=== PATIENT | male | born 1980 | race Caucasian/White ===

== ENCOUNTER 2021-10-31 07:43 | Outpatient (REF) | payer BC, SELFPAY ==
[2021-10-31 10:53] LABS: MANUAL DIFF FLAG NO
[2021-10-31 11:02] LABS: Basophils Absolute Auto 0.1 X10*3/uL (0.0-0.2); Basophils Percent Auto 0.8 % (0-2); Eosinophils Absolute Auto 0.2 X10*3/uL (0.0-0.4); Eosinophils Percent Auto 3.7 % (0-4); Hematocrit 47.3 % (42.0-52.0); Hemoglobin 15.5 g/dl (14.0-18.0); Imm Gran Abs Auto 0.02 X10*3/uL (0.00-0.03); Imm Gran Pct Auto 0.3 % (0.0-0.4); Lymphocytes Absolute Auto 1.9 X10*3/uL (1.2-4.9); Lymphocytes Percent Auto 30.8 % (20-40); Mean Corpuscular HGB Conc 32.8 g/dl (31.0-36.0); Mean Corpuscular Hemoglobin 30.3 pg (27.0-33.0); Mean Corpuscular Volume 92.4 fL (80.0-98.0); Mean Platelet Volume 9.7 fL (9.4-12.4); Monocytes Absolute Auto 0.6 X10*3/uL (0.1-1.2); Monocytes Percent Auto 9.7 % (2-11); Neutrophils Absolute Auto 3.3 x10*3/uL (2.0-8.3); Neutrophils Percent Auto 54.7 % (45-73); Platelet Count 281 X10*3/uL (160-400); Red Blood Count 5.12 X10*6/uL (4.60-5.80); Red Cell Distribution Width 13.2 % (11.0-16.0)
[2021-10-31 11:11] LABS: Alanine Aminotransferase 34 U/L (0-40); Albumin Level 4.5 g/dL (3.5-5.0); Alkaline Phosphatase 130 U/L (39-117); Anion Gap 12 (12-20); Aspartate Amino Transferase 23 U/L (5-37); Bilirubin Total 0.7 mg/dL (0.0-1.0); Blood Urea Nitrogen 19 mg/dL (9-16); Calcium 9.4 mg/dL (8.4-10.2); Carbon Dioxide 28 mmol/L (22-29); Chloride 103 mmol/L (96-108); Cholesterol 226 mg/dL; Estimated Glomerular Filt Rate > 60; Glucose Fasting 87 mg/dL (60-99); HDL Cholesterol 60 mg/dL; LDL Cholesterol Calculated 150 mg/dl; Potassium 4.4 mmol/L (3.3-5.1); Sodium 139 mmol/L (135-145); Total Protein 7.7 g/dL (6.5-8.0); Triglycerides 81 mg/dL
[2021-10-31 11:33] LABS: TSH reflex Free T4 3.28 uIU/mL (0.32-4.0)
[2021-10-31 12:13] LABS: Erythrocyte Sedimentation Rate 2 MM/HR (0-15)
[2021-11-02 13:32] LABS: CRP High Sensitivity <0.3 mg/L
[2021-11-05 17:51] LABS: Transglutaminase IgA <1.0 U/mL
[2021-11-07 11:17] LABS: Testosterone, Free 107.5 pg/mL (35.0-155.0); Testosterone, Total 578 ng/dL (250-1100)
== END 2021-10-31 07:44 | disposition home or self-care (01) ==
LOC: HO.WFDLDS 07:43
PROVIDERS: Visit Provider Family Medicine
DX: Z00.00 Encounter for general adult medical examination without abnormal findings (principal); R53.83 Other fatigue; Z83.79 Family history of other diseases of the digestive system
CPT/HCPCS: 36415; 80053; 80061; 84402; 84403; 84443; 85025; 85652; 86141; 86364

== ENCOUNTER 2023-01-22 07:29 | Outpatient (REF) | payer BC, SELFPAY ==
[2023-01-22 11:33] LABS: Appearance Urine Turbid; Color Urine Dark Yellow; Glucose Urine UA Negative (Negative); Leukocyte Esterase Urine Negative (Negative); Nitrite Urine Negative (Negative); PH 5.5 (5.0-9.0); Specific Gravity - Urine >= 1.030 (1.005-1.025); Urine Blood Negative (Negative); Urine Ketones Trace mg/dL (Negative); Urine Protein Trace mg/dL (Neg-Trace)
[2023-01-22 12:15] LABS: Alanine Aminotransferase 20 U/L (0-40); Albumin Level 4.2 g/dL (3.5-5.0); Alkaline Phosphatase 122 U/L (39-117); Anion Gap 13 (12-20); Aspartate Amino Transferase 18 U/L (5-37); Bilirubin Total 0.9 mg/dL (0.0-1.0); Blood Urea Nitrogen 18 mg/dL (9-16); Calcium 9.1 mg/dL (8.4-10.2); Carbon Dioxide 26 mmol/L (22-29); Chloride 107 mmol/L (96-108); Cholesterol 196 mg/dL; Estimated Glomerular Filt Rate > 60; Glucose Fasting 79 mg/dL (60-99); HDL Cholesterol 52 mg/dL; LDL Cholesterol Calculated 131 mg/dl; Potassium 4.4 mmol/L (3.3-5.1); Sodium 142 mmol/L (135-145); Total Protein 6.6 g/dL (6.5-8.0); Triglycerides 66 mg/dL
[2023-01-22 12:19] LABS: TSH reflex Free T4 3.35 uIU/mL (0.32-4.0)
== END 2023-01-22 07:30 | disposition home or self-care (01) ==
LOC: HO.WFDLDS 07:29
PROVIDERS: Visit Provider Family Medicine
DX: Z00.00 Encounter for general adult medical examination without abnormal findings (principal); Z12.5 Encounter for screening for malignant neoplasm of prostate; I10 Essential (primary) hypertension
CPT/HCPCS: 36415; 80053; 80061; 81003; 82043; 84153; 84443

== ENCOUNTER 2024-02-02 07:47 | Outpatient (REF) | payer BC, SELFPAY ==
[2024-02-02 11:42] LABS: Appearance Urine Clear; Color Urine Yellow; Glucose Urine UA Negative (Negative); Leukocyte Esterase Urine Negative (Negative); Nitrite Urine Negative (Negative); Specific Gravity - Urine 1.025 (1.005-1.025); Urine Blood Negative (Negative); Urine Ketones Negative (Negative); Urine Protein Negative (Neg-Trace)
[2024-02-02 12:19] LABS: Alanine Aminotransferase 22 U/L (0-40); Albumin Level 4.1 g/dL (3.5-5.0); Alkaline Phosphatase 108 U/L (39-117); Anion Gap 13 (12-20); Aspartate Amino Transferase 23 U/L (5-37); Bilirubin Total 0.6 mg/dL (0.0-1.0); Blood Urea Nitrogen 20 mg/dL (9-16); Calcium 9.2 mg/dL (8.4-10.2); Carbon Dioxide 26 mmol/L (22-29); Chloride 107 mmol/L (96-108); Cholesterol 192 mg/dL (<200); Estimated Glomerular Filt Rate > 60; Glucose Fasting 87 mg/dL (60-99); HDL Cholesterol 53 mg/dL (>40); LDL Cholesterol Calculated 125 mg/dL (<100); Potassium 4.1 mmol/L (3.3-5.1); Sodium 142 mmol/L (135-145); TSH reflex Free T4 2.45 uIU/mL (0.32-4.0); Total Protein 6.8 g/dL (6.5-8.0); Triglycerides 71 mg/dL (<150)
[2024-02-02 12:23] LABS: Prostate Specific Antigen Scr 0.31 ng/mL (<0.05-4.0)
[2024-02-02 12:28] LABS: Creatinine Urine 159.07 mg/dL; Microalbumin Urine < 5.0 mg/L
== END 2024-02-02 07:48 | disposition home or self-care (01) ==
LOC: HO.WFDLDS 07:47
PROVIDERS: Visit Provider Family Medicine
DX: Z00.00 Encounter for general adult medical examination without abnormal findings (principal); I10 Essential (primary) hypertension; Z12.5 Encounter for screening for malignant neoplasm of prostate
CPT/HCPCS: 36415; 80053; 80061; 81003; 82043; 82570; 84153; 84443

== ENCOUNTER → 2024-02-03 15:50 | Outpatient (AMB) | payer BC, SELFPAY ==
[2024-02-03 16:19] VITALS: BP 136/60; PULSE 74; O2SAT 99; BMI 24.9
--- NOTE | 2024-02-03 16:19 | A.OFFPC_ITS ---
Vital Signs 02/03/24 16:19 Height 5 ft 11 in Weight 178 lb 4 oz BMI 24.9 BP 136/60 Blood Pressure Location Lt brachial Position Sitting Pulse 74 Pulse Source Pulse Oximeter Pulse Oximetry (%) 99 Oxygen Delivery Method Room Air Intake Visit Reasons: CPE w/ f/u labs & health maint Intake Note: Patient is here for physical, and follow up on labs. Allergies No Known Allergies Allergy (Verified 02/03/24 16:21) Tobacco use date assessed: 02/04/23 Dental Screening Dental Screen Date: 02/03/24 Did you have a dental visit in the last 12 months?: Yes Did you have a dental problem in the last 6 months where you did not have access to dental care?: No Was dental information given to patient?: Patient has dentist HPI CPE w/ f/u labs & health maint HPI Details 43 y/o male presents for a CPE with f/u labs and health maintenance. Labs were drawn 02/02/24. Reviewed labs with pt. Triglycerides 71. TC 192. LDL 125. HDL 53. LDL had been elevated before in the past. PSA 0.31. Pt reports memory changes - states he has a hx of concussion. He states he gets enough sleep. Pt reports chest pain not associated with exertion. [facility] Medical History (Updated 02/03/24 @ 17:08 by Fercho Stephenson) Concussion Broken clavicle Surgical History (Updated 02/03/24 @ 16:24 by Sonali Ravi CMA) No pertinent past surgical history Family History Father Substance abuse Social History Housing: House Patient Tobacco Use Status: Never used Tobacco e-Cigarette/Vaping Use: Never Used Second Hand Smoke Exposure: No service: No Current occupational status: employed Current occupational exposures/hazards: No Cognitive needs: No Hearing needs: No Vision needs: No Questionnaire PHQ-9 Over the last 2 weeks, how often have you been bothered by any of the following problems? 1. Little interest or pleasure in doing things: not at all 2. Feeling down, depressed, or hopeless: not at all 3. Trouble falling or staying asleep, or sleeping too much: not at all 4. Feeling tired or having little energy: not at all 5. Poor appetite or overeating: not at all 6. Feeling bad about yourself - or that you are a failure or have let yourself or your family down: not at all 7. Trouble concentrating on things, such as reading the newspaper or watching television: not at all 8. Moving or speaking so slowly that other people could have noticed. Or the opposite - being so fidgety or restless that you have been moving around a lot more than usual: not at all 9. Thoughts that you would be better off or of hurting yourself in some way: not at all Total score: 0 Depression Screening Interpretation: Negative Depression Screening Done: Yes Source: Developed by Drs. Jordy Medrano, Lucy Bird, Jv Vicente and colleagues, with an educational vera from [employer]. Thrive Questionnaire Date Thrive assessed: 02/03/24 I am a: Patient What is your living situation today?: I have a steady place to live Within the past 12 months, did the food you bought not last and you didn't have the money to get more?: Never true Within the past 12 months, did you worry whether your food would run out before you got money to buy more?: Never true Do you have trouble paying for medicines?: No Do you have trouble getting transportation to medical appointments?: No Do you have trouble paying your heating and electricity bill?: No Do you have trouble taking care of your child, family member or friend?: No Do you have trouble with day-to-day activities such as bathing, preparing meals, shopping, managing finances, etc.?: No Are you currently unemployed and looking for a job?: No Are you interested in more education?: No THRIVE Score: 0 AUDIT C Alcohol Use Questionnaire (AUDIT-C) 1. How often do you have a drink containing alcohol?: Never 3. How often do you have six or more drinks on one occasion?: Never Total Score: 0 ANDIE-7 AMB Questionnaire ANDIE-7 Date ANDIE - 7 assessed: 11/15/21 Source: Developed by Drs. Jordy Medrano, Jv Angeles and colleagues, with an educational vera from [employer]. ANIDE-7 Assessment Billing ANDIE-7 Assessment Tool: pt declined-do not bill Review of Systems Const Denies chills, Denies fatigue, Denies fever(s), Denies headache(s) and Denies weakness Eyes Denies change in vision ENT Denies dizziness, Denies headache(s), Denies hearing loss, Denies nasal congestion, Denies sinus pain, Denies sinus pressure and Denies sore throat Card Reports chest pain, Denies lightheadedness, Denies dyspnea and Denies other (palpitations) Resp Denies cough, Denies dyspnea and Denies wheezing GI Denies abdominal pain, Denies melena, Denies hematochezia, Denies change in bowel habits, Denies dyspepsia and Denies nausea Denies hematuria and Denies dysuria Musc Denies abnormal gait, Denies myalgias, Denies arthralgias, Denies numbness and Denies tingling Skin/Breast Denies rash, Denies unusual bruising and Denies wounds Neuro Denies abnormal gait, Denies dizziness, Denies headache(s), Denies memory loss, Denies numbness, Denies Sensory deficit (Neuro), Denies tingling and Denies weakness Psych Denies anxiety, Denies depression and Denies memory loss Endo Denies cold intolerance, Denies fatigue, Denies heat intolerance, Denies polydipsia and Denies polyuria Marlo/Lymph Denies easy bleeding and Denies easy bruising Aller/Immun Denies wheezing Physical exam (Primary Care) Vital Signs: Last Vital Signs Pulse 74 02/03/24 16:19 BP 136/60 02/03/24 16:19 Pulse Ox 99 02/03/24 16:19 Oxygen Delivery Method Room Air 02/03/24 16:19 BMI result Body Mass Index 24.9 Tobacco/Smoking Status: Tobacco use Status Tobacco use date assessed 02/04/23 02/03/24 16:20 Patient Tobacco Use Status Never used Tobacco 02/03/24 16:20 e-Cigarette/Vaping Use Never Used 02/03/24 16:20 PHQ-9: PHQ-9 Score PHQ-9: Total score 0 02/03/24 16:53 Depression Screening Interpretation: Negative Thrive Assessment: Date of Thrive Assessment Date Thrive assessed 02/03/24 02/03/24 16:28 Const General: no acute distress, well developed, alert and awake Nutritional Appearance: well nourished Orientation/consciousness: patient oriented x3 HENMT Head: Yes normocephalic and Yes atraumatic Ears: hearing grossly normal bilaterally and TM's normal bilaterally General nose exam: Normal external nose present and Normal nares present Mouth: Normal oral and palatal mucosa present and moist mucous membranes Teeth and gingiva: dentition normal Throat: Yes posterior oropharynx normal Eyes General: appearance normal, both eyes and all related structures Pupils: Equal, round and reactive pupils present and Pupil accommodation reflex normal EOM: EOMs intact bilaterally Neck Neck: Yes normal visual inspection, Yes no lymphadenopathy and Yes trachea midline Thyroid: Thyroid normal Carotids: no bruits Lymphatic: no lymphadenopathy noted Chest Chest palpation & inspection: normal inspection of the chest Resp Effort & Inspection: normal respiratory effort Auscultation: clear to auscultation bilaterally Cardio Rate: regular rate Rhythm: regular rhythm Heart sounds: S1 normal heart sound present, S2 normal heart sound present, no gallops, no murmurs and no rubs Bruits: no abdominal aortic bruits and no carotid bruits GI Palpation (GI): No Abdominal aortic bruit present, Soft to palpation, nontender, No hepatosplenomegaly present and No Rebound tenderness present Auscultation: normal bowel sounds General: Yes no CVA tenderness Back/Spine/Pelvis Back: no CVA tenderness Cervical Spine: cervical ROM normal and No Cervical spine tenderness Thoracic/Lumbar Spine: thoraco-lumbar ROM normal, No pain with thoraco-lumbar ROM, No thoracic spinal tenderness and No lumbar spinal tenderness Skin Lesions: no lesions Rashes: no rashes Trauma: no lacerations or abrasions Wounds: no wounds Nails: normal Neuro General: patient oriented x3 Cranial nerves: Yes Equal, round and reactive pupils present Cognition (Neuro): normal cognition Gait exam (Neuro): Normal gait present Motor exam (neuro): 5/5 motor strength present throughout Sensory Exam: No Sensory deficit (Neuro) Deep tendon reflexes (DTR's): Right patellar reflex intensity grade: 2+ and Left patellar reflex intensity grade: 2+ Extrem General: Yes normal to inspection and No edema Psych Appearance: grossly normal Affect: normal affect Attitude: cooperative Thought process: Normal thought process present Assessment and Plan Assessment & Plan (1) Adult general medical exam: Code(s): Z00.00 - Encounter for general adult medical examination without abnormal findings Plan: 43-year-old?male?presents?for?complete?physical?exam Encouraged?healthy?diet?with?active?lifestyle?and?plenty?of?exercise (2) Elevated LDL cholesterol level: Code(s): E78.00 - Pure hypercholesterolemia, unspecified Plan: LDL?greater?than?100 Advised?lifestyle?changes?including?diet?lower?in?saturated?fats? and?cholesterol?and?exercise (3) Atypical chest pain: Code(s): R07.89 - Other chest pain Plan: Patient?notes?some?focal?left- sided?chest?pain?which?lasts?30?seconds?to?a?minute Unclear?if?this?is?related?to?exertion EKG: ?Interventricular?conduction?delay?with?QRS?120?msec - no?other?abno rmalities;?likely?normal?variant. ?Normal?axis,?no?hypertrophy?and?no?ST-T-wave?changes. Discomfort?likely?of?noncardiac?origin He?will?let?me?know?if?pain?is?associated?with?exertion?or associated?wi th?any?shortness?of?breath,?diaphoresis?or?dizziness. He?will?let?me?know?if?pain?is?worsening Will?follow-up?on?chest?x-ray (4) Memory changes: Code(s): R41.3 - Other amnesia Plan: Unclear?cause Patient?attributes?to?prior?concussion Lab?work?is?okay He?will?let?me?know?if?this?worsens (5) Screening for prostate cancer: Code(s): Z12.5 - Encounter for screening for malignant neoplasm of prostate Plan: PSA?was?within?normal?range Orders: Orders AMB EKG-In Office Today R07.89 - Other chest pain XR chest 2V Today R07.89 - Other chest pain Coding Level of Care Code Est Pt Level 3 (53493) Est Pt Prev Care 40-64y(69673) Diagnoses Adult general medical exam Z00.00 Elevated LDL cholesterol level E78.00 Atypical chest pain R07.89 Memory changes R41.3 Screening for prostate cancer Z12.5
== END ==
PROVIDERS: PCP Family Medicine; Visit Provider Family Medicine
DX: Z00.00 Encounter for general adult medical examination without abnormal findings (principal); E78.00 Pure hypercholesterolemia, unspecified; R07.89 Other chest pain; R41.3 Other amnesia; Z12.5 Encounter for screening for malignant neoplasm of prostate
CPT/HCPCS: 93000; 99213; 99396

== ENCOUNTER 2025-04-17 15:45 | Outpatient (AMB) | payer BC, SELFPAY ==
--- OUTSIDE RECORDS SUMMARY | 2025-04-17 15:48 | XMS_ITS | Encounter Summary ---
Author Organization [facility] Address [address] [place] [phone] Phone Care Team Providers Care Orchard Pruner Name Role Phone Pcp, Unknown Primary Care Provider Zachery Suarez MD Primary Care Provider Encounter Details Date Type Department Care Team (Late st Contact Info) Description 06/21/2022 Procedure Pass [facility], Ct Scan - [address] [address] Social History Tobacco Use Types Packs/Day Years Used Date Smoking Tobacco: Never Assessed Sex and Gender Information Value Date Recorded Sex Assigned at Male 04/26/2024 6:29 PM EDT Legal Sex Male 1:22 PM EDT Gender Identity Male 04/26/2024 6:29 PM EDT Sexual Orientation Straight 04/26/2024 6: 29 PM EDT documented as of this encounter Functional Status * Calculated C-SSRS Risk Score (Lifetime/Recent) Answer Date of Assessment Author No Risk Indicated 06/21/2022 2:20 PM EDT Marline Modi RN * [place] Suicide Severity Rating Scale (Screener/Recent Self-Report) Question Answer Date of Assessment Author 1. Wish to be (Past 1 Month) No 06/21/2022 2:20 PM EDT Marline Modi ae, RN 2. Non-Specific Active Suici vitaly Thoughts (Past 1 Month) No 06/21/2022 2:20 PM EDT Yenni Modi RN 6. Suicidal Behavior (Lifetime) No 2:20 PM EDT Marline Modi RN documented as of this encounter Plan of Treatment Not on file documented as of this encounter Visit Diagnoses Not on filedocumented in this encounter Care Teams Or[facility] Pruner Relationship Specialty Start Date End Date Pcp, Unknown PCP - General 06/21/22 06/22/22 Zachery López MD [address] [place] [address] PCP - General Family Medicine 06/23/22 documented as of this encounter Additional Source Comments The information contained in this document represents components of the legal health record. It is not the complete legal health record.[facility]
[2025-04-17 15:49] VITALS: BP 118/68; PULSE 72; RESP 16; TEMP 36.4; O2SAT 98; BMI 24.0
--- NOTE | 2025-04-17 15:49 | A.OFFPC_ITS ---
Vital Signs 04/17/25 15:49 Height 5 ft 11 in Weight 172 lb BMI 24.0 BP 118/68 Blood Pressure Location Rt brachial Position Sitting Respiration 16 Pulse 72 Pulse Source Pulse Oximeter Temp 97.5 F Temp Source Oral Pulse Oximetry (%) 98 Oxygen Delivery Method Room Air Intake Visit Reasons: CPE Intake Note: Pt has some concerns about chronic fatigue, and a possible eye concern? Allergies No Known Allergies Allergy (Verified 04/17/25 15:55) Medication List - Last Reconciled 04/17/25 by Zachery López MD cetirizine (All Day Allergy (cetirizine)) 10 mg PO DAILY PRN fluticasone propionate 50 mcg/actuation (Flonase Allergy Relief) 1 spray intranasal Q12H Tobacco use date assessed: 04/17/25 Dental Screening Dental Screen Date: 04/17/25 Did you have a dental visit in the last 12 months?: Yes Did you have a dental problem in the last 6 months where you did not have access to dental care?: No Was dental information given to patient?: Patient has dentist HPI CPE HPI Details 44 y/o male presents for a CPE with f/u labs and health maint. No recent labs to review. Has been having complaints of fatigue. He sleeps 8-10 hours. He sometimes wakes up rested. Reports eye concerns - had reported an episode of strange visual disturbances like looking through a magnifying glass. He had reported a mild headache during this episode. HPI Comments History of Present Illness Details Documentation assistance for Zachery López MD, was provided by Fercho Stephenson, Consulting Software Engineer on 04/17/2025 at 4:20 PM EST. I, Dr. López, have read, observed, and verified documentation. FOR[facility]LY [facility], [facility] Medical History Concussion Broken clavicle Surgical History No pertinent past surgical history Family History Father Substance abuse Social History Housing: House Patient Tobacco Use Status: Never used Tobacco e-Cigarette/Vaping Use: Never Used Second Hand Smoke Exposure: No service: No Current occupational status: employed Current occupational exposures/hazards: No Cognitive needs: No Hearing needs: No Vision needs: No Questionnaire PHQ-9 Over the last 2 weeks, how often have you been bothered by any of the following problems? 1. Little interest or pleasure in doing things: not at all 2. Feeling down, depressed, or hopeless: not at all 3. Trouble falling or staying asleep, or sleeping too much: not at all 4. Feeling tired or having little energy: more than half the days 5. Poor appetite or overeating: not at all 6. Feeling bad about yourself - or that you are a failure or have let yourself or your family down: not at all 7. Trouble concentrating on things, such as reading the newspaper or watching television: more than half the days 8. Moving or speaking so slowly that other people could have noticed. Or the opposite - being so fidgety or restless that you have been moving around a lot more than usual: not at all 9. Thoughts that you would be better off or of hurting yourself in some way: not at all Total score: 4 Depression Screening Interpretation: Negative Depression Screening Done: Yes 64672 - PHQ-9 Billing: Yes Source: Developed by Drs. Jordy Medrano, Lucy Bird, Jv Vicente and colleagues, with an educational vera from [employer]. Thrive Questionnaire Date Thrive assessed: 04/17/25 I am a: Patient What is your living situation today?: I have a steady place to live Within the past 12 months, did the food you bought not last and you didn't have the money to get more?: I choose not to answer this question Within the past 12 months, did you worry whether your food would run out before you got money to buy more?: I choose not to answer this question Do you have trouble paying for medicines?: I choose not to answer this question Do you have trouble getting transportation to medical appointments?: I choose not to answer this question Do you have trouble paying your heating and electricity bill?: I choose not to answer this question Do you have trouble taking care of your child, family member or friend?: I choose not to answer this question Do you have trouble with day-to-day activities such as bathing, preparing meals, shopping, managing finances, etc.?: I choose not to answer this question Are you currently unemployed and looking for a job?: I choose not to answer this question Are you interested in more education?: I choose not to answer this question Please select the resources that you would like help with: None Currently or been in a relationship where the following occur: I choose not to answer THRIVE Score: 0 AUDIT C Alcohol Use Questionnaire (AUDIT-C) 1. How often do you have a drink containing alcohol?: Never 3. How often do you have six or more drinks on one occasion?: Never Total Score: 0 ANDIE-7 AMB Questionnaire ANDIE-7 Date ANDIE - 7 assessed: 04/17/25 Feeling nervous, anxious, or on edge: 0 = Not at all Not being able to stop or control worryin = Not at all Worrying too much about different things: 0 = Not at all Trouble relaxin = Not at all Being so restless that it is hard to sit still: 0 = Not at all Becoming easily annoyed or irritable: 0 = Not at all Feeling afraid as if something awful might happen: 0 = Not at all Total ANDIE-7 score (0-4 normal; 5-9 mild; 10-14 moderate; 15-21 severe): 0 Source: Developed by Drs. Jordy Medrano, Lucy Bird, Jv Vicente and colleagues, with an educational vera from [employer]. ANDIE-7 Assessment Billing ANDIE-7 Assessment Tool: ANDIE-7 Assessment 29484 Review of Systems Const Reports fatigue, Denies headache(s) and Denies weakness Eyes Denies change in vision ENT Denies dizziness, Denies headache(s), Denies hearing loss, Denies nasal congestion, Denies sinus pain, Denies sinus pressure and Denies sore throat Card Denies chest pain, Denies lightheadedness, Denies dyspnea and Denies other (palpitations) Resp Denies cough, Denies dyspnea and Denies wheezing GI Denies abdominal pain, Denies melena, Denies hematochezia, Denies change in bowel habits, Denies dyspepsia and Denies nausea Denies hematuria and Denies dysuria Musc Denies abnormal gait, Denies myalgias, Denies arthralgias, Denies numbness and Denies tingling Skin/Breast Denies rash, Denies unusual bruising and Denies wounds Neuro Denies abnormal gait, Denies dizziness, Denies headache(s), Denies memory loss, Denies numbness, Denies Sensory deficit (Neuro), Denies tingling and Denies weakness Psych Denies anxiety, Denies depression and Denies memory loss Endo Reports fatigue Marlo/Lymph Denies easy bleeding and Denies easy bruising Aller/Immun Denies wheezing Physical exam (Primary Care) Vital Signs: Last Vital Signs Temp 97.5 F 04/17/25 15:49 Pulse 72 04/17/25 15:49 Resp 16 04/17/25 15:49 BP 118/68 04/17/25 15:49 Pulse Ox 98 04/17/25 15:49 Oxygen Delivery Method Room Air 04/17/25 15:49 BMI result Body Mass Index 24.0 Tobacco/Smoking Status: Tobacco use Status Tobacco use date assessed 04/17/25 04/17/25 15:57 Patient Tobacco Use Status Never used Tobacco 04/17/25 15:57 e-Cigarette/Vaping Use Never Used 04/17/25 15:57 PHQ-9: PHQ-9 Score PHQ-9: Total score 4 04/17/25 16:18 Depression Screening Interpretation: Negative Thrive Assessment: Date of Thrive Assessment Date Thrive assessed 04/17/25 04/17/25 15:57 Currently or been in a relationship where the following occur: I choose not to answer Const General: no acute distress, well developed, alert and awake Nutritional Appearance: well nourished Orientation/consciousness: patient oriented x3 HENMT Head: Yes normocephalic and Yes atraumatic Ears: hearing grossly normal bilaterally and TM's normal bilaterally General nose exam: Normal external nose present and Normal nares present Mouth: Normal oral and palatal mucosa present and moist mucous membranes Teeth and gingiva: dentition normal Throat: Yes posterior oropharynx normal Eyes General: appearance normal, both eyes and all related structures Pupils: Equal, round and reactive pupils present and Pupil accommodation reflex normal EOM: EOMs intact bilaterally Neck Neck: Yes normal visual inspection, Yes no lymphadenopathy and Yes trachea midline Thyroid: Thyroid normal Carotids: no bruits Lymphatic: no lymphadenopathy noted Chest Chest palpation & inspection: normal inspection of the chest Resp Effort & Inspection: normal respiratory effort Auscultation: clear to auscultation bilaterally Cardio Rate: regular rate Rhythm: regular rhythm Heart sounds: S1 normal heart sound present, S2 normal heart sound present, no gallops, no murmurs and no rubs Bruits: no abdominal aortic bruits and no carotid bruits GI Palpation (GI): No Abdominal aortic bruit present, Soft to palpation, nontender, No hepatosplenomegaly present and No Rebound tenderness present Auscultation: normal bowel sounds General: Yes no CVA tenderness Back/Spine/Pelvis Back: no CVA tenderness Cervical Spine: cervical ROM normal and No Cervical spine tenderness Thoracic/Lumbar Spine: thoraco-lumbar ROM normal, No pain with thoraco-lumbar ROM, No thoracic spinal tenderness and No lumbar spinal tenderness Skin Lesions: no lesions Rashes: no rashes Trauma: no lacerations or abrasions Wounds: no wounds Nails: normal Neuro General: patient oriented x3 Cranial nerves: Yes Equal, round and reactive pupils present Cognition (Neuro): normal cognition Gait exam (Neuro): Normal gait present Motor exam (neuro): 5/5 motor strength present throughout Sensory Exam: No Sensory deficit (Neuro) Deep tendon reflexes (DTR's): Right patellar reflex intensity grade: 2+ and Left patellar reflex intensity grade: 2+ Extrem General: Yes normal to inspection and No edema Psych Appearance: grossly normal Affect: normal affect Attitude: cooperative Thought process: Normal thought process present Coding Level of Care Code Est Pt Level 3 (78167) Est Pt Prev Care 40-64y(81341) Diagnoses Adult general medical exam Z00.00 Fatigue R53.83 Visual disturbance H53.9 Screening for prostate cancer Z12.5 Additional Codes ANDIE-7 Assessment Billing - ANDIE-7 Assessment Tool: ANDIE-7 Assessment 37613 ([id number]) PHQ-9 - 09295 - PHQ-9 Billing: Yes ([id number]) Assessment & Plan Assessment & Plan (1) Adult general medical exam: Code(s): Z00.00 - Encounter for general adult medical examination without abnormal findings Category: Medical Plan: 44-year-old male presents for complete physical exam (2) Fatigue: Code(s): R53.83 - Other fatigue Category: Medical Plan: Patient notes ongoing fatigue. Will check labs including CBC, thyroid hormone level and testosterone. (3) Visual disturbance: Code(s): H53.9 - Unspecified visual disturbance Category: Medical Plan: Patient notes intermittent visual disturbances associated fatigue and caffeine.. Cranial nerves 2-12 intact today on exam. No focal neurologic deficits. May be associated with high caffeine intake will withdrawal. May be ocular migraine Check labs including sed rate Will refer to Neurology (4) Screening for prostate cancer: Code(s): Z12.5 - Encounter for screening for malignant neoplasm of prostate Category: Medical Plan: PSA level is ordered Orders: Orders Prostate Specific Antigen Scr Today Z12.5 - Encounter for screening for malignant neoplasm of prostate Testosterone, Free/Total Today R53.83 - Other fatigue Complete Blood Count Auto Diff Today Z00.00 - Encounter for general adult medical examination without abnormal findings Lipid Panel Today Z00.00 - Encounter for general adult medical examination without abnormal findings Comprehensive [place]. Panel Fast Today Z00.00 - Encounter for general adult medical examination without abnormal findings Microalbumin, Random (w Creat) Today I10 - Essential (primary) hypertension TSH reflex Free T4 Today Z00.00 - Encounter for general adult medical examination without abnormal findings UA CC w/rflx Micro + Cult Today Z00.00 - Encounter for general adult medical examination without abnormal findings Erythrocyte Sedimentation Rate Today H53.9 - Unspecified visual disturbance CRP High Sensitivity Today H53.9 - Unspecified visual disturbance Referrals Ophthalmology Referral H53.9 - Unspecified visual disturbance Neurology Referral H53.9 - Unspecified visual disturbance
== END 2025-04-17 16:37 | disposition home or self-care (01) ==
LOC: HO.HMCFM 15:45
PROVIDERS: PCP Family Medicine; Visit Provider Family Medicine
DX: Z00.00 Encounter for general adult medical examination without abnormal findings (principal); R53.83 Other fatigue; H53.9 Unspecified visual disturbance

== ENCOUNTER → 2025-04-17 15:45 | Outpatient (BNVA) | payer BC, SELFPAY | PROVIDERS: PCP Family Medicine; Visit Provider Family Medicine | DX: Z00.00 Encounter for general adult medical examination without abnormal findings (principal); R53.82 Chronic fatigue, unspecified; H53.8 Other visual disturbances; R51.9 Headache, unspecified; I10 Essential (primary) hypertension | CPT/HCPCS: 96127 ==

== ENCOUNTER 2025-04-19 08:25 | Outpatient (REF) | payer BC, SELFPAY ==
--- OUTSIDE RECORDS SUMMARY | 2025-04-19 08:34 | XMS_ITS | Encounter Summary ---
Author Organization [facility] Address [address] [place] [phone] Phone Care Team Providers Care Firer Retort Name Role Phone Pcp, Unknown Primary Care Provider Zachery Suarez MD Primary Care Provider Encounter Details Date Type Department Care Team (Late st Contact Info) Description 06/21/2022 Procedure Pass [facility], Ct Scan - [address] [address] Social History Tobacco Use Types Packs/Day Years [...] 2:20 PM EDT Marline Modi RN * [place] Suicide Severity Rating Scale (Screener/Recent Self-Report) Question [...] on filedocumented in this encounter Care Teams Firer Retort Relationship Specialty Start Date End Date Pcp, Unknown PCP - General 06/21/22 06/22/22 Zachery López MD [address] [place] [address] PCP - General Family Medicine 06/23/22 documented as of this encounter Additional Source Comments The information contained in this document represents components of the legal health record. It is not the complete legal health record.[facility]
[2025-04-19 11:29] LABS: Appearance Urine Clear; Glucose Urine UA Negative (Negative); PH 6.0 (5.0-9.0); Specific Gravity - Urine 1.015 (1.005-1.025)
[2025-04-19 11:31] LABS: MANUAL DIFF FLAG NO
[2025-04-19 11:46] LABS: Hematocrit 43.9 % (42.0-52.0); Hemoglobin 14.1 g/dl (14.0-18.0); Imm Gran Abs Auto 0.01 X10*3/uL (0.00-0.03); Imm Gran Pct Auto 0.2 % (0.0-0.4); Lymphocytes Absolute Auto 1.3 X10*3/uL (1.2-4.9); Mean Corpuscular HGB Conc 32.1 g/dl (31.0-36.0); Mean Corpuscular Hemoglobin 30.5 pg (27.0-33.0); Mean Corpuscular Volume 94.8 fL (80.0-98.0); NRBC Abs Auto 0.000 X10*3/uL (0.0-0.012); NRBC Pct Auto 0.0 /100WBC (0.0-0.2); Platelet Count 259 X10*3/uL (160-400); Red Blood Count 4.63 X10*6/uL (4.60-5.80); White Blood Count 4.8 X10*3/uL (4.8-10.8)
[2025-04-19 11:56] LABS: Alanine Aminotransferase 21 U/L (0-40); Albumin Level 4.3 g/dL (3.5-5.0); Alkaline Phosphatase 113 U/L (39-117); Anion Gap 9 (12-20); Aspartate Amino Transferase 26 U/L (5-37); Blood Urea Nitrogen 18 mg/dL (9-16); Calcium 8.7 mg/dL (8.4-10.2); Carbon Dioxide 28 mmol/L (22-29); Chloride 107 mmol/L (96-108); Cholesterol 163 mg/dL (<200); Estimated Glomerular Filt Rate > 60; HDL Cholesterol 49 mg/dL (>40); Potassium 4.0 mmol/L (3.3-5.1); Sodium 140 mmol/L (135-145); Total Protein 6.8 g/dL (6.5-8.0); Triglycerides 63 mg/dL (<150)
[2025-04-19 12:29] LABS: Microalbum/Creatinine Ratio Ur 6.9 ug/mg cr (<30)
[2025-04-24 11:29] LABS: Testosterone, Free 83.8 pg/mL (35.0-155.0)
== END 2025-04-19 08:26 | disposition home or self-care (01) ==
LOC: HO.WFDLDS 08:25
PROVIDERS: Visit Provider Family Medicine
DX: Z00.00 Encounter for general adult medical examination without abnormal findings (principal); Z12.5 Encounter for screening for malignant neoplasm of prostate; R53.83 Other fatigue; I10 Essential (primary) hypertension; H53.9 Unspecified visual disturbance; R07.89 Other chest pain
CPT/HCPCS: 36415; 80053; 80061; 81003; 82043; 82570; 84153; 84402; 84403; 84443; 85025; 85652; 86141

== ENCOUNTER 2025-06-16 14:23 | Outpatient (AMB) | payer BC, SELFPAY ==
--- OUTSIDE RECORDS SUMMARY | 2025-06-16 14:26 | XMS_ITS | Encounter Summary ---
Author Organization [facility] Address [address] [place] [address] Phone Care Team Providers Care Diploma Pharmacy Technician Name Role Phone Pcp, Unknown Primary Care Provider Zachery Suarez MD Primary Care Provider Encounter Details Date Type Department Care Team (Late st Contact Info) Description 06/21/2022 Procedure Pass [facility], Ct Scan - [address] [address] Social History Tobacco Use Types Packs/Day Years [...] 2:20 PM EDT Marline Modi RN * [place] Suicide Severity Rating Scale (Screener/Recent Self-Report) Question [...] on filedocumented in this encounter Care Teams Diploma Pharmacy Technician Relationship Specialty Start Date End Date Pcp, Unknown PCP - General 06/21/22 06/22/22 Zachery López MD [address] [place] [address] PCP - General Family Medicine 06/23/22 documented as of this encounter Additional Source Comments The information contained in this document represents components of the legal health record. It is not the complete legal health record.[facility]
--- OUTSIDE RECORDS SUMMARY | 2025-06-16 14:26 | XMS_ITS | Encounter Summary ---
Author Organization [facility] Address [address] [place] [phone] Phone Care Team Providers Care Occupational Therapy Professor Name Role Phone Pcp, Unknown Primary Care Provider Zachery Suarez MD Primary Care Provider Encounter Details Date Type Department Care Team (Late st Contact Info) Description 06/21/2022 Procedure Pass [facility], Ct Scan - [address] [address] Social History Tobacco Use Types Packs/Day Years [...] No Risk Indicated 06/21/2022 2:20 PM EDT Marilne Modi RN * [place] Suicide Severity Rating Scale (Screener/Recent Self-Report) Question [...] on filedocumented in this encounter Care Teams Occupational Therapy Professor Relationship Specialty Start Date End Date Pcp, Unknown PCP - General 06/21/22 06/22/22 Zachery López MD [address] [place] [address] PCP - General Family Medicine 06/23/22 documented as of this encounter Additional Source Comments The information contained in this document represents components of the legal health record. It is not the complete legal health record.[facility]
--- OUTSIDE RECORDS SUMMARY | 2025-06-16 14:26 | XMS_ITS | Clinical Summary ---
Author Organization [facility] Address [address] [place] [phone] Phone Care Team Providers Care Instructional Materials Director Name Role Phone Zachery López MD Primary Care Provider Allergies No known active allergies Medications No known medications Active Problems No known active problems Immunizations Immunization Administration Dates Next Due Tdap 06/21/2022 Social History Tobacco Use Types Packs/Day Years Used Date Smoking Tobacco: Never Smokeless Tobacco: Never Tobacco Cessation:Counseling Given: Not Answered Alcohol Use Standard Drinks/Week Comments Not Currently 0 (1 standard drink = 0.6 oz pur e alcohol) Education Answer Date Recorded Are you interested in more education? Not on adriel e 01/10/2023 Are you concerned about learning? Not on file 01/10/2023 No 01/10/2023 No 01/10/2023 Digital Access Answer Date Recorded No 02/08/2023 No 02/08/2023 Reliable internet access at home? Not on file 02/08/2023 Device with a working camera? Not on file Intimate Partner Violence Answer Date R ecorded Are you denied basic needs s uch as food, clothing, or medical care? No 04/26/2024 In the past 12 months have y ou been in a relationship with a person who hurts, threatens, or tries to control you? No 04/26/2024 Are you denied basic needs s uch as food, clothing, or medical care? No 04/26/2024 In the past 12 months have y ou been in a relationship with a person who hurts, threatens, or tries to control you? No 04/26/2024 Sex and Gender Information Value Date Recorded Sex Assigned at Male 04/26/2024 6:29 PM EDT Legal Sex Male 1:22 PM EDT Gender Identity Male 04/26/2024 6:29 PM EDT Sexual Orientation Straight 04/26/2024 6: 29 PM EDT Last Filed Vital Signs Vital Sign Reading Time Taken Comments Blood Pressure 133/80 04/26/2024 9:31 PM EDT Pulse 77 04/26/2024 9:31 PM EDT Temperature 37.3 C (99.1 F) 04/26/2024 9:31 PM EDT Respiratory Rate 18 04/26/2024 9:31 PM EDT Oxygen Saturation 97% 04/26/2024 9:31 PM EDT Inhaled Oxygen Concentration - - Weight 72.6 kg (160 lb) 04/26/2024 6:30 PM EDT Height 180.3 cm (5' 11 ) 04/26/2024 6:30 PM EDT Body Mass Index 22.32 04/26/2024 6:30 PM EDT Plan of Treatment Health Maintenance Due Date Last Done Comments LIPID PANEL 1981 DEPRESSION SCREENING 1993 HEPATITIS C SCREENING 12/06/1999 HIV ONE-TIME SCREENING (18-65 YEARS) 12/06/1999 SMOKING STATUS SCREENING (Once After 26 Yrs) 12/06/2007 INFLUENZA VACCINE (#1) 2025 , 07/10/2021, 06/07/2020, Additional history exists COVID-19 VACCINE ( season) 2025 05/24/2022, 02/13/2021, 01/10/2021 Adult Td,Tdap Booster 06/21/2032 06/21/2022 HEPATITIS A VACCINES Aged Out No long er eligible based on patient's age to complete this topic HIB VACCINES Aged Out No longer eligi ble based on patient's age to complete this topic MENINGOCOCCAL VACCINES (ACWY) Aged Out No longer eligible based on patient's age to complete this topic MENINGOCOCCAL VACCINES (B) Aged Out N o longer eligible based on patient's age to complete this topic PNEUMOCOCCAL VACCINES (0-49 years) Aged Out No longer eligible based on patient's age to complete this topic Medical Devices Not on file [place] [address] [place] [address] PPO EPO PPO EPO PPO EPO PPO EPO PPO EPO PPO EPO [place] [address] [place] [address] [place] [address] [place] [address] PPO EPO Care Teams Instructional Materials Director Relationship Specialty Start Date End Date Zachery López MD [address] [place] [address] PCP - General Family Medicine 06/23/22 Additional Source Comments The information contained in this document represents components of the legal health record. It is not the complete legal health record.[facility]
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
[2025-06-16 14:32] VITALS: BP 128/72; PULSE 88; O2SAT 98; BMI 24.0
== END 2025-06-16 15:53 | disposition home or self-care (01) ==
LOC: HO.HSMS 14:24
PROVIDERS: PCP Family Medicine; Visit Provider Psychiatry & Neurology Neurology
DX: H53.8 Other visual disturbances (principal)
CPT/HCPCS: 99204

== ENCOUNTER 2025-06-30 15:22 | Outpatient (AMB) | payer BC, SELFPAY ==
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
== END 2025-06-30 16:08 | disposition home or self-care (01) ==
LOC: HO.HMCFM 15:22
PROVIDERS: PCP Family Medicine; Visit Provider Family Medicine
DX: E78.00 Pure hypercholesterolemia, unspecified (principal); N52.9 Male erectile dysfunction, unspecified; Z12.5 Encounter for screening for malignant neoplasm of prostate